=== PATIENT | male | born 1975 | race Caucasian/White ===

== ENCOUNTER 2023-10-26 02:20 | Day surgery (SDC) | payer OTHER, SELFPAY ==
[2023-10-08 14:06] VITALS: BMI 25.4
[2023-10-26 08:21] VITALS: BP 161/82; PULSE 102; RESP 18; TEMP 36.6; O2SAT 100
[2023-10-26] MEDS: LACTATED RINGERS 1,000 ML 150 ML IV CONT (08:29)
--- NOTE | 2023-10-26 08:49 | P.PNAN_ITS ---
Anes - Initial Pre Proc Eval Procedure: Operation Date: 10/26/23 11:00 Proposed Procedures p Screening Colonoscopy - Jorge Cano MD Date/Time: 10/26/23 08:49 Surgeon: Jorge Cano MD Pre Op Diagnosis: neoplasm screening Patient Data Age: 47 Gender: M Height: 1.83 m Weight: 84.4 kg Last Vital Signs Temp 97.8 F 10/26/23 08:21 Pulse 102 H 10/26/23 08:21 Resp 18 10/26/23 08:21 BP 161/82 H 10/26/23 08:21 Pulse Ox 100 10/26/23 08:21 O2 Del Method Room Air 10/26/23 08:21 Allergies Allergy/AdvReac Type Severity Reaction Status Date / Time No Known Allergies Allergy Verified 10/26/23 08:19 Home Medications Medication Instructions Recorded Confirmed Type atorvastatin 20 mg tablet (Lipitor) 20 mg PO QHS #90 tabs 05/18/23 10/08/23 Rx Patient hx anesthesia problems: none Family hx anesthesia problems: none Results Review: All pre-operative results and documents have been reviewed as part of the pre- operative evaluation. [facility] Past Medical History Medical History Cancer of skin of left ear Family history of prostate cancer in father Surgical History Surgical History History of basal cell carcinoma excision 2017 - Left ear lobe History of surgery on arm (~2013) Right Ulnar fracture ORIF [place] teeth extracted (~1995) Family History Family History Mother Hypertension Grandparent Diabetes mellitus H/O liver cancer Social History Social History Smoking packs per day: 0.5 Smoking cigarettes per day: 10.0 Years smoked: 30 Smoking pack-years: 15.00 Smoking status: Current every day smoker Tobacco type: cigarettes Additional smoking assessment comments: 1 pack a day Alcohol intake: never Substance use: never Substance use type: does not use Living arrangements: with family 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/Education: 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 Gender identity (if verbalized by the patient): Male Sexual Orientation (if Verbalized by the Patient): Straight or Heterosexual Spiritual care concerns: No Agree to blood products: Yes Anes - Eval Final PreProcedure Day of Procedure 10/26/23 08:49 Patient weight: normal Heart: regular rate and rhythm Lungs: clear to auscultation Airway: Mallampati scale class II Neurological: alert and oriented Last oral intake: >/= 8 hours ASA classification: II Emergent: no Anesthetic plan: proceed Anesthesia type and monitoring: general GIVS and standard monitoring Results Review: All pre-operative results and documents have been reviewed as part of the pre- operative evaluation. Informed Consent: The patient's anesthetic plan and its attendant risks and benefits were discussed with the patient/family/POA. Questions were solicited and answers provided to the satisfaction of the patient/family/POA.
--- NOTE | 2023-10-26 09:22 | PM.HPGS ---
History of Present Illness History of Present Illness Consent: Risks, benefits, and alternatives have been discussed and questions answered. Patient agrees to proceed with procedure. Chief complaint: neoplasm screening Narrative: Vishal Garrett Jr. is a 47 year old male here for first screening colonoscopy Review of Systems Review of Systems: All systems reviewed & are unremarkable except as noted in HPI and below PMFSH Past Medical History Medical History (Updated 10/26/23 @ 09:22 by Jorge Cano MD) Cancer of skin of left ear Colon cancer screening Family history of prostate cancer in father Surgical History Surgical History History of basal cell carcinoma excision 2017 - Left ear lobe History of surgery on arm (~2013) Right Ulnar fracture ORIF [place] teeth extracted (~1995) Family History Family History Mother Hypertension Grandparent Diabetes mellitus H/O liver cancer Social History Social History Smoking packs per day: 0.5 Smoking cigarettes per day: 10.0 Years smoked: 30 Smoking pack-years: 15.00 Smoking status: Current every day smoker Tobacco type: cigarettes Additional smoking assessment comments: 1 pack a day Alcohol intake: never Substance use: never Substance use type: does not use Living arrangements: with family Occupation/Education: occupation Additional occupation/education comments: [employer] Gender identity (if verbalized by the patient): Male Sexual Orientation (if Verbalized by the Patient): Straight or Heterosexual Spiritual care concerns: No Agree to blood products: Yes Meds Home Medications and Allergies Home Medications Medication Instructions Recorded Confirmed Type atorvastatin 20 mg tablet (Lipitor) 20 mg PO QHS #90 tabs 05/18/23 10/08/23 Rx Allergies Allergy/AdvReac Type Severity Reaction Status Date / Time No Known Allergies Allergy Verified 10/26/23 08:19 Vital Signs Vital Signs - 24 hr 10/26/23 08:21 Temperature 97.8 F Pulse Rate 102 H Respiratory Rate 18 Blood Pressure 161/82 H Pulse Oximetry 100 Oxygen Delivery Room Air Exam Const: General: comfortable and no acute distress HENMT: Face/Nose/Sinus: Normal nares present Eyes: General: appearance normal, both eyes and all related structures Neck: Neck: no JVD Resp: Auscultation: clear to auscultation bilaterally Cardio: Rate: regular rate Rhythm: regular rhythm GI: Inspection: non-distended GI Palp: Yes Soft to palpation Skin: General skin exam: normal color Neuro: General: gait normal Speech: normal speech Extrem: General: normal to inspection Psych: Mental Status: mental status grossly normal Assessment and Plan Assessment and plan (1) Colon cancer screening: Code(s): Z12.11 - Encounter for screening for malignant neoplasm of colon Status: Acute Assessment and Plan: colonoscopy
[2023-10-26 09:35] VITALS: BP 118/62; PULSE 79; RESP 20; O2SAT 97
[2023-10-26 09:45] VITALS: BP 113/78; PULSE 90; RESP 20; O2SAT 99
[2023-10-26 09:55] VITALS: BP 134/92; PULSE 84; RESP 21; O2SAT 99
== END 2023-10-26 10:05 | disposition home or self-care (01) ==
PROVIDERS: PCP Family Medicine; Visit Provider Internal Medicine Gastroenterology
PROC: 0DJD8ZZ Inspection of Lower Intestinal Tract, Via Natural or Artificial Opening Endoscopic (ICD-10-PCS; CPT 45378; principal; 2023-10-26 11:00)
DX: Z12.11 Encounter for screening for malignant neoplasm of colon (principal); K64.8 Other hemorrhoids; F17.210 Nicotine dependence, cigarettes, uncomplicated; Z98.890 Other specified postprocedural states; Z85.828 Personal history of other malignant neoplasm of skin; Z80.0 Family history of malignant neoplasm of digestive organs
CPT/HCPCS: 45378; J2704; J7120